=== PATIENT | male | born 1980 | race Caucasian/White ===

== ENCOUNTER 2017-04-23 21:35 | Emergency (ER) | payer OTHER ==
[2017-04-23 23:08] LABS: BASOPHIL % 0.2 % (0-2); PLATELET COUNT 193 x10^3mcL (130-400)
[2017-04-23 23:30] LABS: CALCIUM 8.1 mg/dL (8.5-10.1); CARBON DIOXIDE 26.3 mmol/L (21-32); CHLORIDE SERUM 104 mmol/L (98-107); CREATININE SERUM 1.1 mg/dL (0.7-1.3); GFR1 > 60 mL/min; GLUCOSE SERUM 166 mg/dL (74-106); POTASSIUM SERUM 3.7 mmol/L (3.5-5.1); SODIUM SERUM 140 mmol/L (136-145)
[2017-04-24 00:57] VITALS: BP 124/72
[2017-04-24 01:49] LABS: CHOLESTEROL/HDL RATIO 3.6; PHOSPHOROUS 4.5 mg/dL (2.5-4.9)
[2017-04-24 13:53] LABS: T3 TOTAL 1.27 ng/mL
[2017-04-24 14:04] LABS: FREE T4 1.24 ng/dL (0.76-1.46)
[2017-04-24 14:06] LABS: FREE THYROXINE INDEX 7.4 ug/dL (1.4-4.5)
== END 2017-04-24 00:57 | disposition left against medical advice (07) ==
LOC: ED 21:35 → DU 04-24 → ED 04-24 00:57
PROVIDERS: Emergency Medicine; Family Medicine
DX: T78.2XXA Anaphylactic shock, unspecified, initial encounter (principal)
CPT/HCPCS: 83880; 84439; J0171; J1200; J2930; J3490; J7030; J7613; Q0092

== ENCOUNTER 2018-04-27 19:32 | Emergency (ER) | payer OTHER ==
[~2018-04-27] VITALS: Ht 175.3 cm; Wt 66.7 kg
[2018-04-27 20:07] VITALS: BP 144/90
== END 2018-04-27 21:10 | disposition left against medical advice (07) ==
LOC: ED 19:32
DX: Z53.21 Procedure and treatment not carried out due to patient leaving prior to being seen by health care provider (principal)